=== PATIENT | male | born 1965 | race Caucasian/White ===

== ENCOUNTER 2018-12-28 18:10 | Emergency (ER) | payer OTHER, MEDICARE ==
[~2018-12-28] VITALS: Ht 185.4 cm; Wt 136.4 kg
[2018-12-28 18:19] VITALS: TEMP 97
[2018-12-28] MEDS ORDERED: PERCOCET 325 MG1 TAB PO (19:26)
[2018-12-28] MEDS ORDERED: BYSTOLIC20 MG PO (19:27)
[2018-12-28] MEDS ORDERED: NORVASC 5MG5 MG/TAB PO (19:27)
[2018-12-28] MEDS ORDERED: ZOLOFT 25MG25 MG PO (19:27)
[2018-12-28] MEDS ORDERED: NEURONTIN300 MG/CAP PO (19:27)
[2018-12-28] MEDS ORDERED: BELSOMRA20 MG PO (19:28)
[2018-12-28] MEDS ORDERED: FLEXERIL 1010 MG/TAB PO (19:28)
[2018-12-28] MEDS ORDERED: PRINIVIL40 MG PO (19:28)
[2018-12-28] MEDS ORDERED: LIPITOR 40MG TA40 MG PO (19:28)
[2018-12-28] MEDS ORDERED: ASPIRIN 81M81 MG/TA2 PO (19:29)
[2018-12-28] MEDS ORDERED: JANUVIA 100MG100 MG PO (19:29)
[2018-12-28] MEDS ORDERED: XANAX 1MG1 MG PO (19:29)
[2018-12-28] MEDS ORDERED: MIRALAX PA17 GM/Dose PO (19:29)
[2018-12-28] MEDS ORDERED: GLUCOTROL 5M5 MG/TAB PO (19:29)
[2018-12-28] MEDS ORDERED: WELLBUTRIN SR150 M1 PO (19:30)
[2018-12-28] MEDS ORDERED: TOPAMAX 25MG25 M1 PO (19:30)
[2018-12-28] MEDS ORDERED: CEPHALEXIN500 M1 PO (19:34)
[2018-12-28 20:15] VITALS: BP 133/94; PULSE 85
== END 2018-12-28 20:15 | disposition home or self-care (01) ==
LOC: COL.ER 18:10
DX: N47.2 Paraphimosis (principal)
CPT/HCPCS: A4216; J0696; J2405; J3010